=== PATIENT | male | born 1965 | race Caucasian/White ===

== ENCOUNTER 2016-09-27 03:43 | Emergency (ER) | payer MEDICAID, OTHER ==
[~2016-09-27] VITALS: Ht 185.4 cm; Wt 73.4 kg
[~2016-09-27 03:43] MED LIST: AMOX500T PO
[2016-09-27 03:51] VITALS: BP 116/72; PULSE 94; RESP 18; TEMP 98; O2SAT 98
[2016-09-27 03:55] VITALS: BP 116/72; PULSE 94; RESP 18; TEMP 98; O2SAT 98
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
[2016-09-27] MEDS ORDERED: IBUPROFEN 800 MG TAB PO ONE (04:45)
[2016-09-27] MEDS ORDERED: TRAM50TA PO (04:53)
[2016-09-27] MEDS ORDERED: IBUP800T23 PO (04:53)
[2016-09-27 05:05] VITALS: BP 121/74; PULSE 85; RESP 18; O2SAT 97
[2016-09-27 06:25] VITALS: RESP 18
== END 2016-09-27 05:40 | disposition home or self-care (01) ==
LOC: PHED 03:43
DX: S92.902A Unspecified fracture of left foot, initial encounter for closed fracture (principal); S97.80XA Crushing injury of unspecified foot, initial encounter; F17.210 Nicotine dependence, cigarettes, uncomplicated; W23.0XXA Caught, crushed, jammed, or pinched between moving objects, initial encounter; Y92.59 Other trade areas as the place of occurrence of the external cause; Y99.0 Civilian activity done for income or pay
CPT/HCPCS: 29515; 73630; 99283; E0113

== ENCOUNTER 2017-07-21 17:42 | Emergency (ER) | payer OTHER ==
[~2017-07-21] VITALS: Ht 185.4 cm; Wt 82.0 kg
[~2017-07-21 17:42] MED LIST changes: +IBUP1TAB7 PO; +TRAM50TA PO
[2017-07-21 17:45] VITALS: BP 117/77; PULSE 75; RESP 16; TEMP 97.9; O2SAT 98
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
[2017-07-21] MEDS ORDERED: BENZ0.5T PO (18:15)
[2017-07-21] MEDS ORDERED: TETANUS/DIPHTHERIA TOXOID ADULT 0.5 ML VIAL IM ONE (18:15)
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
[2017-07-21] MEDS ORDERED: IBUP1TAB7 PO (19:19)
== END 2017-07-21 19:31 | disposition home or self-care (01) ==
LOC: PHEFT 17:42
DX: S39.012A Strain of muscle, fascia and tendon of lower back, initial encounter (principal); M25.522 Pain in left elbow; F17.200 Nicotine dependence, unspecified, uncomplicated; T14.8XXA Other injury of unspecified body region, initial encounter; V19.9XXA Pedal cyclist (driver) (passenger) injured in unspecified traffic accident, initial encounter
CPT/HCPCS: 70450; 70486; 71045; 72100; 72125; 73080; 73590; 90471; 90714